=== PATIENT | female | born 1995 | race Caucasian/White ===

== ENCOUNTER 2017-05-25 10:37 | Emergency (ER) | payer MEDICAID ==
--- NOTE | 2017-05-25 10:59 | ER Document Report ---
ED General - General Chief Complaint: Dizziness Stated Complaint: DIZZINESS Notes: 22-year-old female with a history of repaired ASD and migraines presents with a constellation of symptoms for a month consisting of like feeling like her blood pressure is high, intermittent chest pressure, positional dizziness and near syncope as well as amenorrhea. She has a 5-month-old, is breast-feeding and has had 6 sexual activity but is not on control. Today she had an episode where she got up felt very dizzy "like jelly" and almost fainted. She did not pass out. She was brought in by EMS. Blood pressure is slightly elevated. She has a history of gestational hypertension with her last child. She denies current chest pain palpitations dizziness but has a mild headache. No visual disturbances or focal neurologic symptoms other than all 4 extremity tingling on occasion but not at the moment. She does not have Medicaid right now and does not have a primary care provider. TRAVEL OUTSIDE OF THE [place] IN LAST 30 DAYS: No - Related Data Allergies/Adverse Reactions: amoxicillin trihydrate [From Augmentin] Allergy (Mild, Verified 05/25/17 10:47) Hives Potassium Clavulanate * [From Augmentin] Allergy (Mild, Verified 05/25/17 10:47) Hives sulfamethoxazole [From Bactrim DS] Allergy (Mild, Verified 05/25/17 10:47) Hives tramadol [Tramadol] Allergy (Mild, Verified 05/25/17 10:47) Hives trimethoprim [From Bactrim DS] Allergy (Mild, Verified 05/25/17 10:47) Hives Past Medical History - Social History Smoking Status: Current Some Day Smoker Family History: None Patient has suicidal ideation: No Patient has homicidal ideation: No Neurological Medical History: Reports: Hx Migraine Renal/ Medical History: Denies: Hx Peritoneal Dialysis Past Surgical History: Reports: Hx Cardiac Surgery - ASD Repair - Immunizations Immunizations up to date: Yes Hx Diphtheria, Pertussis, Tetanus Vaccination: Yes Review of Systems - Review of Systems Notes: REVIEW OF SYSTEMS GEN: Weakness occasional dizziness ENT: Denies sore throat, nasal discharge, ear pain EYES: Denies blurry vision, eye pain, discharge CV: D positional chest pressure, shortness of breath. A RESP: Denies cough, shortness of breath, wheezing GI: Denies abdominal pain, nausea, vomiting, diarrhea MSK: Denies joint pain/swelling, edema, SKIN: Denies rash, skin lesions LYMPH: Denies swollen glands/lymph nodes NEURO: D headache, denies, focal weakness or numbness, dizziness PSYCH: Denies depression, suicidal or homicidal ideation PHYSICAL EXAMINATION General: No acute distress, well-nourished Head: Atraumatic, normocephalic ENT: Mouth normal, oropharynx moist, no exudates or tonsillar enlargement Eyes: Conjunctiva normal, pupils equal, lids normal able to visualize optic disks, no papilledema. Neck: No JVD, supple, no guarding CVS: Normal rate, regular rhythm, no murmurs Resp: No resp distress, equal and normal breath sounds bilaterally GI: Nondistended, soft, no tenderness to palpation, no rebound or guarding Ext: No deformities, no edema, normal range of motion in upper and lower ext Back: No CVA or midline TTP Skin: No rash, warm Lymphatic: No lymphadeopathy noted Neuro: Awake, alert. Face symmetric. No pronator drift intact software support specialist and normal sensation in all 4 extremities. Normal gait. GCS 15. Physical Exam - Vital signs Vitals: Temp Pulse Resp BP Pulse Ox 98.5 F 58 L 16 124/92 H 99 05/25/17 10:42 05/25/17 10:42 05/25/17 10:42 05/25/17 10:42 05/25/17 10:42 Course - Re-evaluation Re-evalutation: 05/25/17 10:58 22-year-old female presents with a constellation of headache weakness and near syncope. Her physical exam is normal at this time, including neuro. I do not think she has elevated intracranial pressure. She may have symptomatic hypertension and may be so we will get basic labs, and EKG, UA and urine . I did stress to her that we can only rule out emergencies today, and that she will be likely discharged if everything is normal and we will need to establish primary care. Also explained to her that treating mild hypertension in the ED can be detrimental, and that she may be discharged with mildly elevated BP, and we will attempt to help her with follow-up. 05/25/17 12:13 On discharge the patient's mother arrived in the room. The mother was quite dissatisfied with the patient's disposition and wanted her admitted because "something is wrong" and that she wants the patient admitted for observation. She states that she is a emergency medical technician and she took the patient's blood pressure at home and it was 240. I explained that her blood pressures here have been stable her workup negative, and that she is low risk for adverse events based on her ED workup. I offered outpatient follow-up even offered to expedite via social work but mother would not agree. I then stated I would speak with the hospitalist for consideration for admission. She is now telling me that should patient has leg pain which she did not tell me earlier, without swelling. Her physical exam of the legs are normal and I do not think she has a DVT. I spoke with Dr. Nguyen by phone who reviewed the patient's ED workup in my history as well as the patient diagnostic data all of which is normal. She agreed the patient does not meet admission criteria, cannot be admitted, and can follow-up as an outpatient. 05/25/17 12:15 - Vital Signs Vital signs: Temp Pulse Resp BP Pulse Ox 98.5 F 58 L 16 124/92 H 99 05/25/17 10:42 05/25/17 10:42 05/25/17 10:42 05/25/17 10:42 05/25/17 10:42 - Laboratory Result Diagrams: 05/25/17 11:00 05/25/17 11:00 Laboratory results interpreted by me: 05/25/17 11:00 RBC 5.37 H - EKG Interpretation by Me EKG shows normal: Sinus rhythm Rate: Normal Rhythm: NSR - Sinus arrhythmia Discharge - Discharge Clinical Impression: Pre-syncope Condition: Good Disposition: HOME, SELF-CARE Additional Instructions: He was seen for dizziness and chest pain. Your EKG is normal as were all of your laboratory testing. Initially her blood pressure was elevated, however it lowered on its own. You may in fact have high blood pressure and this needs to be checked as an outpatient. Your urine testing including were normal. You are not . Please keep well hydrated, and follow-up with her primary care doctor soon as you can. Forms: Elevated Blood Pressure Referrals: [facility] [Provider Group] - Follow up as needed
[2017-05-25 11:18] LABS: APPEARANCE,URINE CLEAR; BILIRUBIN,URINE NEGATIVE (NEGATIVE); GLUCOSE, URINE NEGATIVE (NEGATIVE); KETONES,URINE NEGATIVE (NEGATIVE); LEUKOCYTE ESTERASE,URINE NEGATIVE (NEGATIVE); NITRITE,URINE NEGATIVE (NEGATIVE); PROTEIN,URINE NEGATIVE (NEGATIVE); URINE SPECIFIC GRAVITY 1.009; UROBILINOGEN,URINE NEGATIVE mg/dL (<2.0)
[2017-05-25 11:21] LABS: ABSOLUTE EOSINOPHILS # (AUTO) 0.4 10^3/uL (0.0-0.6); ABSOLUTE LYMPHOCYTES (AUTO) 1.7 10^3/uL (0.5-4.7); ABSOLUTE MONOCYTES (AUTO) 0.6 10^3/uL (0.1-1.4); ABSOLUTE NEUT (AUTO) 3.3 10^3/uL (1.7-8.2); BASOPHILS % (AUTO) 0.8 % (0-2); EOSINOPHILS % (AUTO) 5.9 % (0-6); HEMATOCRIT 46.3 % (36.0-47.0); HEMOGLOBIN 15.2 g/dL (12.0-15.5); HGB HCT DIFFERENCE -0.7; LYMPHOCYTES % (AUTO) 28.1 % (13-45); MEAN CORPUSCULAR HEMOGLOBIN 28.3 pg (27.0-33.4); MEAN CORPUSCULAR HGB CONC 32.8 g/dL (32.0-36.0); MEAN CORPUSCULAR VOLUME 86 fl (80-97); MONOCYTES % (AUTO) 10.4 % (3-13); RED BLOOD COUNT 5.37 10^6/uL (3.72-5.28); RED CELL DISTRIBUTION WIDTH 13.4 % (11.5-14.0); SEGMENTED NEUTROPHILS % (AUTO) 54.8 % (42-78)
[2017-05-25 11:38] LABS: ANION GAP 11 (5-19); BLOOD UREA NITROGEN 15 mg/dL (7-20); CARBON DIOXIDE 29 mmol/L (22-30); CHLORIDE 103 mmol/L (98-107); CREATININE RESULT 0.59 mg/dL (0.52-1.25); GLUCOSE 96 mg/dL (75-110); POTASSIUM 4.4 mmol/L (3.6-5.0); SODIUM 143.3 mmol/L (137-145)
[2017-05-25 12:51] VITALS: BP 125/77
--- NOTE | 2017-05-25 16:38 | EKG REPORT ---
SEVERITY:- OTHERWISE NORMAL ECG - SINUS ARRHYTHMIA, RATE 46-78 : Confirmed by: Kevin Lenz MD 25-May-2017 16:36:56
== END 2017-05-25 12:35 | disposition home or self-care (01) ==
LOC: ER 10:37
DX: R55 Syncope and collapse (principal); R07.89 Other chest pain; R53.1 Weakness; R51 Headache; N91.2 Amenorrhea, unspecified; R20.2 Paresthesia of skin; R06.02 Shortness of breath; M79.606 Pain in leg, unspecified; F17.200 Nicotine dependence, unspecified, uncomplicated; Z88.1 Allergy status to other antibiotic agents; Z88.0 Allergy status to penicillin; Z88.5 Allergy status to narcotic agent; Z87.59 Personal history of other complications of pregnancy, childbirth and the puerperium
CPT/HCPCS: 36415; 80048; 81001; 81025; 84484; 85025; 93005; 93010; 99284

== ENCOUNTER 2017-11-29 11:54 | Emergency (ER) | payer MEDICAID ==
[2017-11-29 12:07] VITALS: BP 127/69
--- NOTE | 2017-11-29 12:40 | ER Document Report ---
ED Medical Screen (RME) - General Chief Complaint: Vaginal Bleeding Stated Complaint: ABDOMINAL PAIN,VAGINAL BLEEDING Time Seen by Provider: 11/29/17 12:30 Notes: 22F here with complaints of vaginal bleeding and lower abdominal cramping. She states that she recently passed a very large blood clot. She denies any hematuria but has had some dysuria and lower abdominal pressure. Her last menstrual period was early October. EXAM Mild suprapubic tenderness to palpation TRAVEL OUTSIDE OF THE [place] IN LAST 30 DAYS: No - Related Data Allergies/Adverse Reactions: amoxicillin trihydrate [From Augmentin] Allergy (Mild, Verified 11/29/17 11:55) Hives Potassium Clavulanate * [From Augmentin] Allergy (Mild, Verified 11/29/17 11:55) Hives sulfamethoxazole [From Bactrim DS] Allergy (Mild, Verified 11/29/17 11:55) Hives tramadol [Tramadol] Allergy (Mild, Verified 11/29/17 11:55) Hives trimethoprim [From Bactrim DS] Allergy (Mild, Verified 11/29/17 11:55) Hives Past Medical History - Social History Chew tobacco use (# tins/day): No Frequency of alcohol use: None Drug Abuse: None Neurological Medical History: Reports: Hx Migraine Renal/ Medical History: Denies: Hx Peritoneal Dialysis Past Surgical History: Reports: Hx Cardiac Surgery - ASD Repair - Immunizations Immunizations up to date: Yes Hx Diphtheria, Pertussis, Tetanus Vaccination: Yes Physical Exam - Vital signs Vitals: Temp Pulse Resp BP Pulse Ox 98.4 F 66 18 127/69 H 96 11/29/17 12:05 11/29/17 12:05 11/29/17 12:05 11/29/17 12:05 11/29/17 12:05 Course - Vital Signs Vital signs: Temp Pulse Resp BP Pulse Ox 98.4 F 66 18 127/69 H 96 11/29/17 12:05 11/29/17 12:05 11/29/17 12:05 11/29/17 12:05 11/29/17 12:05
[2017-11-29 13:08] LABS: ABSOLUTE BASOPHILS # (AUTO) 0.1 10^3/uL (0.0-0.2); ABSOLUTE EOSINOPHILS # (AUTO) 0.3 10^3/uL (0.0-0.6); ABSOLUTE LYMPHOCYTES (AUTO) 1.6 10^3/uL (0.5-4.7); ABSOLUTE MONOCYTES (AUTO) 0.5 10^3/uL (0.1-1.4); ABSOLUTE NEUT (AUTO) 8.4 10^3/uL (1.7-8.2); BASOPHILS % (AUTO) 0.7 % (0-2); EOSINOPHILS % (AUTO) 2.6 % (0-6); HEMATOCRIT 40.5 % (36.0-47.0); HEMOGLOBIN 13.3 g/dL (12.0-15.5); MEAN CORPUSCULAR HEMOGLOBIN 28.2 pg (27.0-33.4); MEAN CORPUSCULAR HGB CONC 32.9 g/dL (32.0-36.0); MEAN CORPUSCULAR VOLUME 86 fl (80-97); MONOCYTES % (AUTO) 4.8 % (3-13); PLATELET COUNT 251 10^3/uL (150-450); RED BLOOD COUNT 4.73 10^6/uL (3.72-5.28); RED CELL DISTRIBUTION WIDTH 13.6 % (11.5-14.0); SEGMENTED NEUTROPHILS % (AUTO) 76.9 % (42-78); TOTAL CELLS COUNTED % (AUTO) 100 %
[2017-11-29 13:12] LABS: APPEARANCE,URINE CLOUDY; BILIRUBIN,URINE NEGATIVE (NEGATIVE); COLOR,URINE YELLOW; GLUCOSE, URINE NEGATIVE (NEGATIVE); KETONES,URINE NEGATIVE (NEGATIVE); LEUKOCYTE ESTERASE,URINE SMALL (NEGATIVE); NITRITE,URINE NEGATIVE (NEGATIVE); PROTEIN,URINE NEGATIVE (NEGATIVE); URINE SPECIFIC GRAVITY 1.031
[2017-11-29 13:36] LABS: ANION GAP 11 (5-19); BLOOD UREA NITROGEN 8 mg/dL (7-20); CALCIUM 9.6 mg/dL (8.4-10.2); CARBON DIOXIDE 27 mmol/L (22-30); CHLORIDE 103 mmol/L (98-107); GLUCOSE 89 mg/dL (75-110); POTASSIUM 3.9 mmol/L (3.6-5.0); SODIUM 141.3 mmol/L (137-145)
--- NOTE | 2017-11-29 16:29 | ER Document Report ---
ED General - General Chief Complaint: Vaginal Bleeding Stated Complaint: ABDOMINAL PAIN,VAGINAL BLEEDING Time Seen by Provider: 11/29/17 12:30 Mode of Arrival: Ambulatory Information source: Patient TRAVEL OUTSIDE OF THE [place] IN LAST 30 DAYS: No - HPI Patient complains to provider of: vag bleeding Onset: Yesterday Onset/Duration: Gradual Quality of pain: No pain Severity: Moderate Associated symptoms: None Exacerbated by: Denies Similar symptoms previously: Yes Recently seen / treated by doctor: No Notes: Patient presents stating that she passed a large blood clot last night. She states she also took a test a few days ago and was positive. Patient states she does not get regular periods so she is not sure how far along she is. She states that she had somewhat of. The beginning of October which ended October 26. She was spotting on and off in the last night she did pass a clot. She denies any abdominal cramping. Is 3 para 11/18/2001. She states she had -induced hypertension with her oldest child. She denies gestational diabetes. She states that her youngest child was a month early secondary to induction due to patient having high blood pressure in the child having a "enlarged colon with meconium". Patient has seen [facility] with prior pregnancies. States she is also hypothyroid however she stopped her thyroid medication months ago because it makes her hair fall out. She states she sees [facility] specialty [facility] however they will not see her until she has a documented (from medical facility) as per the patient. - Related Data Allergies/Adverse Reactions: amoxicillin trihydrate [From Augmentin] Allergy (Mild, Verified 11/29/17 11:55) Hives Potassium Clavulanate * [From Augmentin] Allergy (Mild, Verified 11/29/17 11:55) Hives sulfamethoxazole [From Bactrim DS] Allergy (Mild, Verified 11/29/17 11:55) Hives tramadol [Tramadol] Allergy (Mild, Verified 11/29/17 11:55) Hives trimethoprim [From Bactrim DS] Allergy (Mild, Verified 11/29/17 11:55) Hives Past Medical History - General Information source: Patient - States she is also on thyroid medication but she stopped taking it - Social History Smoking Status: Never Smoker Chew tobacco use (# tins/day): No Frequency of alcohol use: None Drug Abuse: None Lives with: Family Family History: None Patient has suicidal ideation: No Patient has homicidal ideation: No - Past Medical History Cardiac Medical History: Reports: Other - ASD Pulmonary Medical History: Reports: None Neurological Medical History: Reports: Hx Migraine Renal/ Medical History: Denies: Hx Peritoneal Dialysis GI Medical History: Reports: None Musculoskeltal Medical History: Reports None Skin Medical History: Reports None Psychiatric Medical History: Reports: None Traumatic Medical History: Reports: None Infectious Medical History: Reports: None Past Surgical History: Reports: Hx Cardiac Surgery - ASD Repair, Other - ASD repair - Immunizations Immunizations up to date: Yes Hx Diphtheria, Pertussis, Tetanus Vaccination: Yes Review of Systems - Review of Systems Constitutional: No symptoms reported EENT: No symptoms reported Cardiovascular: No symptoms reported Respiratory: No symptoms reported Gastrointestinal: No symptoms reported Genitourinary: No symptoms reported Female Genitourinary: Vaginal discharge, Vaginal bleeding, Painful intercourse Musculoskeletal: No symptoms reported Skin: No symptoms reported Hematologic/Lymphatic: No symptoms reported Neurological/Psychological: No symptoms reported Physical Exam - Vital signs Vitals: Temp Pulse Resp BP Pulse Ox 98.4 F 66 18 127/69 H 96 11/29/17 12:05 11/29/17 12:05 11/29/17 12:05 11/29/17 12:05 11/29/17 12:05 Interpretation: Normal - Notes Notes: PHYSICAL EXAMINATION: GENERAL: Well-appearing, well-nourished and in no acute distress. HEAD: Atraumatic, normocephalic. EYES: Pupils equal round and reactive to light, extraocular movements intact, conjunctiva are normal. ENT: Nares patent, oropharynx clear without exudates. Moist mucous membranes. NECK: Normal range of motion, supple without lymphadenopathy LUNGS: Breath sounds clear to auscultation bilaterally and equal. No wheezes rales or rhonchi. HEART: Regular rate and rhythm without murmurs ABDOMEN: Soft, nontender, nondistended abdomen. No guarding, no rebound. No masses appreciated. Female : Scant yellowish discharge in vaginal vault. No bleeding present. Cervical loss intact. No CMT or adnexal tenderness Musculoskeletal: Normal range of motion, no pitting or edema. No cyanosis. NEUROLOGICAL: Cranial nerves grossly intact. Normal speech, normal gait. Normal sensory, motor exams PSYCH: Normal mood, normal affect. SKIN: Warm, Dry, normal turgor, no rashes or lesions noted. Course - Vital Signs Vital signs: Temp Pulse Resp BP Pulse Ox 98.4 F 66 18 127/69 H 96 11/29/17 12:05 11/29/17 12:05 11/29/17 12:05 11/29/17 12:05 11/29/17 12:05 - Laboratory Result Diagrams: 11/29/17 12:50 11/29/17 12:50 Laboratory results interpreted by me: 11/29/17 11/29/17 11/29/17 12:50 12:50 12:50 WBC 11.0 H Absolute Neutrophils 8.4 H Beta HCG, Quant 00899.00 H Urine Blood MODERATE H Urine Urobilinogen 4.0 H Ur Leukocyte Esterase SMALL H 11/29/17 19:20 She did have bacteria 3+ on her vaginal swab sent to lab. I did speak to Dr. Lenin Aragon regarding Flagyl in the first trimester. It is not indicated at this time to treat the patient and her first trimester with Flagyl. It is not conclusive the patient actually has BV as there are no clue cells noted as this is not done in the laboratory. Patient was instructed to follow-up with her OB/ [facility] C[facility]TER if she continued to have vaginal discharge and tested positive for BV she can get treatment as per her [facility]DER. He was given a copy of the ultrasound. She was told to follow-up with her primary medical doctor as well as her MFM and OB doctors. - Diagnostic Test Radiology results interpreted by me: 11/29/17 19:21 To sound showed a 7 week 4 day fetus with a subchorionic bleed and a heartbeat of 160 bpm Discharge - Discharge Clinical Impression: , Bacterial vaginal infection Disposition: HOME, SELF-CARE Instructions: Ob-Ex Assistant/Program Director Doctors Additional Instructions: Please call your OB in the am for follow up appointment. Discussed with your OB /TYPE CUTTER treatment for vaginal bacterial infection. It is not indicated to treat bacterial vaginal infection with Flagyl in the first trimester. Referrals: SAMAN PONCE MD [Primary Care Provider] - Follow up as needed
[2017-11-29 17:03] LABS: YEAST (WET MOUNT) NO YEAST SEEN
[2017-11-29 17:04] LABS: WBCS (WET MOUNT) FEW WBCS SEEN
[2017-11-29 17:06] LABS: BACTERIA (WET MOUNT) 3+ BACTERIA SEEN
--- NOTE | 2017-11-29 17:45 | RADIOLOGY REPORT (SQ) ---
EXAM DESCRIPTION: U/S OB TRANSVAGINAL W/O DOP COMPLETED DATE/TIME: 11/29/2017 4:59 pm REASON FOR STUDY: vag bleeding and clots; eval miscarriage ectopic COMPARISON: None. TECHNIQUE: Transvaginal static and realtime grayscale images acquired of the pelvis. Additional kadeem cted spectral and color Doppler images recorded. All images stored on PACs. bHC,[id number]. LIMITATIONS: None. FINDINGS: FETUS: Living intrauterine . EGA: 7 week 4 day. MARGRET: 07/14/2018. FHR: 160 beats per minute. SUBCHORIONIC BLEED: Yes. SIZE OF BLEED: 1.9 x 2.3 cm. UTERUS: No masses. No anomalies. CERVICAL LENGTH: 4.1 cm. Closed. RIGHT ADNEXA: Normal ovary with normal vascular flow. No adnexal free fluid. No adnexal masses. LEFT ADNEXA: Normal ovary with normal vascular flow. No adnexal free fluid. No adnexal masses. FREE FLUID: None. OTHER: No other significant finding. IMPRESSION: LIVING INTRAUTERINE . EGA 7 WEEK 4 DAY. SUBCHORIONIC BLEED IS PRESENT. Trimester of : First - 0 to 13 weeks. TECHNICAL DOCUMENTATION: JOB ID: [id number] 1953 [place] [employer]- All Rights Reserved
[2017-11-29 18:21] LABS: CHLAM PCR NOT DETECTED (NOT DETECT); GON PCR NOT DETECTED (NOT DETECT)
[2017-12-02 13:35] LABS: T.VAGINALIS (WET MOUNT) COULD NOT PERFORM
== END 2017-11-29 18:25 | disposition home or self-care (01) ==
LOC: ER 11:54
DX: O23.591 Infection of other part of genital tract in pregnancy, first trimester (principal); N76.0 Acute vaginitis; B96.89 Other specified bacterial agents as the cause of diseases classified elsewhere; O46.91 Antepartum hemorrhage, unspecified, first trimester; R10.9 Unspecified abdominal pain; Z3A.01 Less than 8 weeks gestation of pregnancy
CPT/HCPCS: 36415; 76817; 80048; 81001; 84443; 84702; 85025; 86850; 86900; 86901; 87086; 87210; 87491; 87591; 99284

== ENCOUNTER 2017-11-30 00:14 | Emergency (ER) | payer MEDICAID ==
[2017-11-30] MEDS ORDERED: MORPHINE SULFATE 10 MG/ML INJ IV ONE (02:24)
[2017-11-30] MEDS ORDERED: NORMAL SALINE 1000 ML 1,000 ML IV ONE (02:24)
--- NOTE | 2017-11-30 02:55 | ER Document Report ---
ED General - General Chief Complaint: Vag Bleeding, +preg <12wks Stated Complaint: VAGINAL BLEEDING CRAMPING Time Seen by Provider: 11/30/17 02:06 Mode of Arrival: Medic Information source: Patient Notes: 22-year-old female presents with complaints of miscarriage. Patient notes at home she passed the fetus and some clots. Patient continued to have vaginal bleeding here. She had just been seen a few hours prior and diagnosed with bacterial vaginosis and threatened miscarriage of ultrasound TRAVEL OUTSIDE OF THE [place] IN LAST 30 DAYS: No - HPI Onset: Just prior to arrival Onset/Duration: Sudden Quality of pain: Sharp Severity: Mild Pain Level: 1 Associated symptoms: Other Exacerbated by: Denies Relieved by: Denies Similar symptoms previously: Yes Recently seen / treated by doctor: Yes - Related Data Allergies/Adverse Reactions: amoxicillin trihydrate [From Augmentin] Allergy (Mild, Verified 11/30/17 00:15) Hives Potassium Clavulanate * [From Augmentin] Allergy (Mild, Verified 11/30/17 00:15) Hives sulfamethoxazole [From Bactrim DS] Allergy (Mild, Verified 11/30/17 00:15) Hives tramadol [Tramadol] Allergy (Mild, Verified 11/30/17 00:15) Hives trimethoprim [From Bactrim DS] Allergy (Mild, Verified 11/30/17 00:15) Hives Past Medical History - Social History Smoking Status: Never Smoker Cigarette use (# per day): No Chew tobacco use (# tins/day): No Smoking Education Provided: No Family History: None, Reviewed & Not Pertinent Neurological Medical History: Reports: Hx Migraine Renal/ Medical History: Denies: Hx Peritoneal Dialysis Past Surgical History: Reports: Hx Cardiac Surgery - ASD Repair, Other - ASD repair - Immunizations Immunizations up to date: Yes Hx Diphtheria, Pertussis, Tetanus Vaccination: Yes Review of Systems - Review of Systems Notes: REVIEW OF SYSTEMS: CONSTITUTIONAL : Denies fever, chills, or sweats. Denies recent illness. EENT: Denies eye, ear, throat, or mouth pain or symptoms. Denies nasal or sinus congestion or discharge. Denies throat, tongue, or mouth swelling or difficulty swallowing. CARDIOVASCULAR: Denies chest pain. Denies palpitations or racing or irregular heart beat. Denies ankle edema. RESPIRATORY: Denies cough, cold, or chest congestion. Denies shortness of breath, difficulty breathing, or wheezing. GASTROINTESTINAL: Denies abdominal pain or distention. Denies nausea, vomiting , or diarrhea. Denies blood in vomitus, stools, or per rectum. Denies black, tarry stools. Denies constipation. GENITOURINARY: Denies difficulty urinating, painful urination, burning, frequency, blood in urine, or discharge. FEMALE GENITOURINARY: Admits to vaginal bleeding MUSCULOSKELETAL: Denies back or neck pain or stiffness. Denies joint pain or swelling. SKIN: Denies rash, lesions or sores. HEMATOLOGIC : Denies easy bruising or bleeding. LYMPHATIC: Denies swollen, enlarged glands. NEUROLOGICAL: Denies confusion or altered mental status. Denies passing out or loss of consciousness. Denies dizziness or lightheadedness. Denies headache. Denies weakness or paralysis or loss of use of either side. Denies problems with gait or speech. Denies sensory loss, numbness, or tingling. Denies seizures. PSYCHIATRIC: Denies anxiety or stress. Denies depression, suicidal ideation, or homicidal ideation. ALL OTHER SYSTEMS REVIEWED AND NEGATIVE. PHYSICAL EXAMINATION: GENERAL: Well-appearing, well-nourished and in no acute distress. HEAD: Atraumatic, normocephalic. EYES: Pupils equal round and reactive to light, extraocular movements intact, conjunctiva are normal. ENT: Nares patent, oropharynx clear without exudates. Moist mucous membranes. NECK: Normal range of motion, supple without lymphadenopathy LUNGS: Breath sounds clear to auscultation bilaterally and equal. No wheezes rales or rhonchi. HEART: Regular rate and rhythm without murmurs ABDOMEN: Soft, nontender, nondistended abdomen. No guarding, no rebound. No masses appreciated. Female : deferred Musculoskeletal: Normal range of motion, no pitting or edema. No cyanosis. NEUROLOGICAL: Cranial nerves grossly intact. Normal speech, normal gait. Normal sensory, motor exams PSYCH: Normal mood, normal affect. SKIN: Warm, Dry, normal turgor, no rashes or lesions noted. Dictation was performed using [employer] voice recognition software Physical Exam - Vital signs Vitals: Temp Pulse Resp BP Pulse Ox 99.3 F 89 18 125/67 98 11/30/17 00:15 11/30/17 00:15 11/30/17 00:15 11/30/17 00:15 11/30/17 00:15 Course - Re-evaluation Re-evalutation: 11/30/17 03:30 Patient's presentation is quite benign at this time, she did lose about 500 cc of blood in the bathroom here however her CBC after this is noted to be a hemoglobin of 12.2. Patient overall looks well will be given IV fluids. Patient definitely had a miscarriage, she presents with a picture of the fetus. The bleeding is expected from the miscarriage. Patient at this time states she feels much better does not wish to have any more pain control except for Tylenol 11/30/17 03:43 Patient's bleeding has slowed down significantly, IV fluids was done, I discussed very strict return precautions, patient otherwise looks well will be discharged with very close return precautions We also discussed incomplete miscarriage fever and abdominal pain return instructions After performing a Medical Screening Examination, I estimate there is LOW risk for ACUTE APPENDICITIS, BOWEL OBSTRUCTION, ACUTE CHOLECYSTITIS, PERFORATED DIVERTICULITIS, INCARCERATED HERNIA, PANCREATITIS, PELVIC INFLAMMATORY DISEASE, PERFORATED ULCER, ECTOPIC , or TUBO-OVARIAN ABSCESS, thus I consider the discharge disposition reasonable. Also, there is no evidence or peritonitis , sepsis, or toxicity. I have reevaluated this patient multiple times and no significant life threatening changes are noted. The patient and I have discussed the diagnosis and risks, and we agree with discharging home with close follow-up with the understanding that symptoms and presentations can change. We also discussed returning to the Emergency Department immediately if new or worsening symptoms occur. We have discussed the symptoms which are most concerning (e.g., bloody stool, fever, changing or worsening pain, vomiting) that necessitate immediate return. - Vital Signs Vital signs: Temp Pulse Resp BP Pulse Ox 98.3 F 68 18 136/68 H 97 11/30/17 02:32 11/30/17 02:32 11/30/17 00:15 11/30/17 02:32 11/30/17 02:32 - Laboratory Result Diagrams: 11/30/17 02:45 11/30/17 02:45 Laboratory results interpreted by me: 11/30/17 02:45 WBC 18.0 H Seg Neutrophils % 80.1 H Absolute Neutrophils 14.5 H Discharge - Discharge Clinical Impression: Bacterial vaginal infection, Miscarriage Condition: Stable Disposition: HOME, SELF-CARE Instructions: Miscarriage ([facility]) Additional Instructions: Follow up with your physician tomorrow for further care or return to the ED IMMEDIATELY if symptoms worsen or new concerns occur. If you cannot afford to follow up with your primary care physician a list of low cost clinics have been provided at the end of your discharge papers as well. Prescriptions: Fluconazole [Diflucan] 150 mg PO ONCE PRN #2 tablet PRN Reason: Metronidazole [Flagyl 500 mg Tablet] 500 mg PO BID #14 tablet
[2017-11-30 03:13] LABS: ABSOLUTE BASOPHILS # (AUTO) 0.1 10^3/uL (0.0-0.2); ABSOLUTE EOSINOPHILS # (AUTO) 0.2 10^3/uL (0.0-0.6); ABSOLUTE LYMPHOCYTES (AUTO) 2.4 10^3/uL (0.5-4.7); ABSOLUTE MONOCYTES (AUTO) 0.9 10^3/uL (0.1-1.4); ABSOLUTE NEUT (AUTO) 14.5 10^3/uL (1.7-8.2); BASOPHILS % (AUTO) 0.4 % (0-2); HEMATOCRIT 36.4 % (36.0-47.0); LYMPHOCYTES % (AUTO) 13.4 % (13-45); MEAN CORPUSCULAR HEMOGLOBIN 28.1 pg (27.0-33.4); MEAN CORPUSCULAR HGB CONC 32.9 g/dL (32.0-36.0); MEAN CORPUSCULAR VOLUME 85 fl (80-97); MONOCYTES % (AUTO) 5.1 % (3-13); PLATELET COUNT 237 10^3/uL (150-450); RED BLOOD COUNT 4.26 10^6/uL (3.72-5.28); RED CELL DISTRIBUTION WIDTH 13.3 % (11.5-14.0); SEGMENTED NEUTROPHILS % (AUTO) 80.1 % (42-78); TOTAL CELLS COUNTED % (AUTO) 100 %
[2017-11-30] MEDS ORDERED: ACETAMINOPHEN 325 MG TABLET PO ONE (03:14)
[2017-11-30 03:28] LABS: ALANINE AMINOTRANSFERASE 28 U/L (9-52); ALBUMIN 4.3 g/dL (3.5-5.0); ALKALINE PHOSPHATASE 83 U/L (38-126); ANION GAP 13 (5-19); ASPARTATE AMINO TRANSFERASE 14 U/L (14-36); BILIRUBIN,DIRECT 0.2 mg/dL (0.0-0.4); BILIRUBIN,TOTAL 0.5 mg/dL (0.2-1.3); BLOOD UREA NITROGEN 8 mg/dL (7-20); CALCIUM 9.6 mg/dL (8.4-10.2); CARBON DIOXIDE 25 mmol/L (22-30); CHLORIDE 103 mmol/L (98-107); GLUCOSE 80 mg/dL (75-110); POTASSIUM 3.7 mmol/L (3.6-5.0); SODIUM 141.4 mmol/L (137-145); TOTAL PROTEIN 6.8 g/dL (6.3-8.2)
[2017-11-30] MEDS ORDERED: ONDANSETRON ODT 4 MG TAB (6 TAB/ER DISP) PO PRN (03:45)
[2017-11-30] MEDS ORDERED: ONDANSETRON HCL INJ/PF 4 MG/2 ML SDV IV ONE (03:45)
[2017-11-30 05:15] LABS: HEMATOCRIT 30.2 % (36.0-47.0); MEAN CORPUSCULAR HEMOGLOBIN 28.7 pg (27.0-33.4); MEAN CORPUSCULAR HGB CONC 33.2 g/dL (32.0-36.0); MEAN CORPUSCULAR VOLUME 86 fl (80-97); PLATELET COUNT 197 10^3/uL (150-450); RED CELL DISTRIBUTION WIDTH 13.2 % (11.5-14.0); WHITE BLOOD COUNT 14.5 10^3/uL (4.0-10.5)
[2017-11-30 06:26] VITALS: BP 123/61
== END 2017-11-30 06:26 | disposition home or self-care (01) ==
LOC: ER 00:14
DX: O20.9 Hemorrhage in early pregnancy, unspecified (principal); O03.9 Complete or unspecified spontaneous abortion without complication; N76.0 Acute vaginitis; B96.89 Other specified bacterial agents as the cause of diseases classified elsewhere; Z88.3 Allergy status to other anti-infective agents
CPT/HCPCS: 99284; 96360; 86900; 86901; 36415; 86850; 85025; 85027; 80053; J2790; J3490; J7030

== ENCOUNTER 2018-04-13 14:43 | Emergency (ER) | payer MEDICAID ==
[2018-04-13] MEDS ORDERED: ACETAMINOPHEN 325 MG TABLET PO ONE (15:36)
--- NOTE | 2018-04-13 15:38 | ER Document Report ---
ED Medical Screen (RME) - General Chief Complaint: Abdominal Pain Stated Complaint: ABDOMINAL CRAMPING Time Seen by Provider: 04/13/18 15:27 Notes: RAPID MEDICAL EVALUATION DISCLOSURE I have seen this patient as part of a Rapid Medical Evaluation and, if applicable, placed any initially appropriate orders. The patient will be seen and fully evaluated, including a full history and physical exam, by a provider ( in Main ED or Fast Track) when a room becomes available. 23-year-old female here with complaints of lower abdominal cramping and vaginal spotting over the past few days. She thinks that she may be having another miscarriage. Her last miscarriage was November of this year. Exam No appreciable abdominal TTP TRAVEL OUTSIDE OF THE [place] IN LAST 30 DAYS: No - Related Data Allergies/Adverse Reactions: sulfamethoxazole [From Bactrim DS] Allergy (Mild, Verified 04/13/18 14:45) Hives tramadol [Tramadol] Allergy (Mild, Verified 04/13/18 14:45) Hives trimethoprim [From Bactrim DS] Allergy (Mild, Verified 04/13/18 14:45) Hives Past Medical History - Social History Chew tobacco use (# tins/day): No Frequency of alcohol use: None Drug Abuse: None Neurological Medical History: Reports: Hx Migraine Renal/ Medical History: Denies: Hx Peritoneal Dialysis Past Surgical History: Reports: Hx Cardiac Surgery - ASD Repair, Hx Oral Surgery - jaw, Other - ASD repair - Immunizations Immunizations up to date: Yes Hx Diphtheria, Pertussis, Tetanus Vaccination: Yes Physical Exam - Vital signs Vitals: Temp Pulse Resp BP Pulse Ox 99.1 F 87 16 128/69 H 99 04/13/18 14:51 04/13/18 14:51 04/13/18 14:51 04/13/18 14:51 04/13/18 14:51 Course - Vital Signs Vital signs: Temp Pulse Resp BP Pulse Ox 99.1 F 87 16 128/69 H 99 04/13/18 14:51 04/13/18 14:51 04/13/18 14:51 04/13/18 14:51 04/13/18 14:51
--- NOTE | 2018-04-13 16:44 | ER Document Report ---
ED GI/ - General Chief Complaint: Abdominal Pain Stated Complaint: ABDOMINAL CRAMPING Time Seen by Provider: 04/13/18 15:27 Mode of Arrival: Ambulatory Information source: Patient TRAVEL OUTSIDE OF THE [place] IN LAST 30 DAYS: No - HPI Patient complains to provider of: , Vaginal bleeding Notes: 04/13/18 16:41 Patient is here with complaints of vaginal bleeding and intermittent pelvic cramping. Patient is currently . She states that she took a test last week which was positive. She believes that her last normal period was sometime in December, but states that she has had some intermittent abnormal bleeding since. She does report having a miscarriage in November. She does have O- blood type and was given RhoGam on her last miscarriage. This is her fourth , she has 2 living children and has had 1 prior miscarriage. States that the bleeding started yesterday as well as the cramping. She states that the bleeding is anywhere from spotting to bleeding heavy enough that she is needed to use a pad. She does complain of some mild lower pelvic cramping. She denies fever. She has had nausea vomiting since finding out she was . No diarrhea. She denies any chest pain or shortness of breath. No rash. She does complain of some mild burning after she urinates. She denies any rash. She complains of some mild thin vaginal discharge, but denies any odor to this. No other complaints at this time. - Related Data Allergies/Adverse Reactions: sulfamethoxazole [From Bactrim DS] Allergy (Mild, Verified 04/13/18 14:45) Hives tramadol [Tramadol] Allergy (Mild, Verified 04/13/18 14:45) Hives trimethoprim [From Bactrim DS] Allergy (Mild, Verified 04/13/18 14:45) Hives Past Medical History - Social History Smoking Status: Current Every Day Smoker Chew tobacco use (# tins/day): No Frequency of alcohol use: None Drug Abuse: None Family History: None, Reviewed & Not Pertinent Patient has suicidal ideation: No Patient has homicidal ideation: No Neurological Medical History: Reports: Hx Migraine Renal/ Medical History: Denies: Hx Peritoneal Dialysis Past Surgical History: Reports: Hx Cardiac Surgery - ASD Repair, Hx Oral Surgery - jaw, Other - ASD repair - Immunizations Immunizations up to date: Yes Hx Diphtheria, Pertussis, Tetanus Vaccination: Yes Review of Systems - Review of Systems -: Yes All other systems reviewed and negative Physical Exam - Vital signs Vitals: Temp Pulse Resp BP Pulse Ox 99.1 F 87 16 128/69 H 99 04/13/18 14:51 04/13/18 14:51 04/13/18 14:51 04/13/18 14:51 04/13/18 14:51 - Notes Notes: GENERAL: alert, cooperative, nontoxic, no distress. HEAD: normocephalic, atraumatic EYES: conjunctiva pink without discharge, no external redness or swelling. EARS: no external swelling, no external redness NOSE: atraumatic, no external swelling MOUTH/THROAT: mucous membranes moist and pink, posterior pharynx without erythema, swelling, exudate. No trismus or drooling. NECK: soft, supple, full range of motion, no meningismus. CHEST: no distress, lungs clear and equal throughout. No wheezing, rales, rhonchi. CARDIAC: regular rate and rhythm, no murmur, normal capillary refill, normal pulses. No peripheral edema noted. ABDOMEN: Soft, mild tenderness to palpation in the suprapubic/pelvic area. No rebound tenderness or guarding. No right lower quadrant tenderness. No pain at McBurney's point. No mass. Obese abdomen. BACK: full range of motion, no CVA tenderness. EXTREMITIES: full range of motion of all extremities. No redness, no swelling. NEURO: alert and oriented x 3, no focal deficits, full range of motion of all extremities. PYSCH: appropriate mood, affect. Patient is cooperative. SKIN: pink, warm, dry, no rash. : Exam performed with female director advanced at the bedside. No external lesions. Vaginal mucosa is pink and moist. Cervix is closed. No active bleeding or old blood within the vaginal vault. Small amount of white vaginal discharge present. No cervical motion tenderness. No adnexal tenderness or masses on bimanual Course - Re-evaluation Re-evalutation: 04/13/18 18:59 Patient is nontoxic appearing with stable vitals. Patient is here with complaints of vaginal bleeding and . She is also having some lower abdominal cramping. This is her fourth . She has 2 living children and a miscarriage in November. States that she started having some vaginal bleeding and cramping yesterday. She has had anything from spotting to significant bleeding. She denies any significant bleeding currently. She has minimal lower pelvic tenderness on exam. Pelvic exam shows a closed cervix with no active bleeding and no old blood within the vaginal vault. Lab work is all unremarkable. Her hCG is 32,000. No signs of UTI on UA. Wet prep is negative. GC chlamydia cultures are currently pending. Ultrasound shows a live intrauterine at 6 weeks. Patient has an O- blood type, due to the fact that she was having vaginal bleeding she does meet the requirement for RhoGam. She was given RhoGam after consent. This point the patient can be discharged home with instructions to follow-up with her BILINGUAL MEDICAL ASSISTANT. Follow-up sooner for worsening pain, fever, numbness, tingling, weakness, any further concerns. The patient is noted to have elevated blood pressure during today's emergency department visit. The patient was informed of this finding. The patient was instructed that this may be related to pre-hypertension and requires further evaluation with a primary care provider. The patient has no hypertensive symptoms at this time. The patient's emergency department workup and current diagnosis were explained to the patient and or family. Follow-up instructions were provided. Medications if prescribed were discussed. Instructions for when to return to the emergency department including specific worrisome symptoms were discussed with the patient and/or family. - Vital Signs Vital signs: Temp Pulse Resp BP Pulse Ox 99.1 F 87 16 128/69 H 99 04/13/18 14:51 04/13/18 14:51 04/13/18 14:51 04/13/18 14:51 04/13/18 14:51 - Laboratory Result Diagrams: 04/13/18 16:45 04/13/18 16:45 Laboratory results interpreted by me: 04/13/18 04/13/18 04/13/18 16:45 16:45 16:45 WBC 12.4 H RDW 16.1 H Absolute Neutrophils 9.4 H Beta HCG, Quant 14645.00 H Urine Urobilinogen 4.0 H Ur Leukocyte Esterase SMALL H - Diagnostic Test Radiology reviewed: Image reviewed, Reports reviewed - Pelvic ultrasound shows live intrauterine . Discharge - Discharge Clinical Impression: Threatened Condition: Stable Disposition: HOME, SELF-CARE Instructions: ([facility]), Threatened Miscarriage ([facility]) Additional Instructions: Follow-up with your BILINGUAL MEDICAL ASSISTANT at the next available appointment. Everything on today's evaluation looks unremarkable. Due to the fact that you are early in and had vaginal bleeding, it is possible that you could go on to have a miscarriage. Follow-up sooner for severe pain, high fever, persistent vomiting, severe bleeding, or for any further concerns. Your blood pressure was elevated during today's visit. Have this rechecked with your doctor. Forms: Elevated Blood Pressure Referrals: TASNEEM GRAY MD [Primary Care Provider] - Follow up as needed
[2018-04-13 17:01] LABS: ABSOLUTE BASOPHILS # (AUTO) 0.1 10^3/uL (0.0-0.2); ABSOLUTE EOSINOPHILS # (AUTO) 0.3 10^3/uL (0.0-0.6); ABSOLUTE LYMPHOCYTES (AUTO) 2.1 10^3/uL (0.5-4.7); ABSOLUTE MONOCYTES (AUTO) 0.5 10^3/uL (0.1-1.4); ABSOLUTE NEUT (AUTO) 9.4 10^3/uL (1.7-8.2); BASOPHILS % (AUTO) 0.6 % (0-2); EOSINOPHILS % (AUTO) 2.3 % (0-6); HEMATOCRIT 38.3 % (36.0-47.0); HEMOGLOBIN 12.5 g/dL (12.0-15.5); LYMPHOCYTES % (AUTO) 17.1 % (13-45); MEAN CORPUSCULAR HEMOGLOBIN 27.2 pg (27.0-33.4); MEAN CORPUSCULAR HGB CONC 32.7 g/dL (32.0-36.0); MEAN CORPUSCULAR VOLUME 83 fl (80-97); MONOCYTES % (AUTO) 4.2 % (3-13); PLATELET COUNT 266 10^3/uL (150-450); RED BLOOD COUNT 4.61 10^6/uL (3.72-5.28); RED CELL DISTRIBUTION WIDTH 16.1 % (11.5-14.0); SEGMENTED NEUTROPHILS % (AUTO) 75.8 % (42-78); TOTAL CELLS COUNTED % (AUTO) 100 %; WHITE BLOOD COUNT 12.4 10^3/uL (4.0-10.5)
[2018-04-13 17:07] LABS: APPEARANCE,URINE SLIGHTLY-CLOUDY; BILIRUBIN,URINE NEGATIVE (NEGATIVE); COLOR,URINE YELLOW; GLUCOSE, URINE NEGATIVE (NEGATIVE); KETONES,URINE NEGATIVE (NEGATIVE); LEUKOCYTE ESTERASE,URINE SMALL (NEGATIVE); NITRITE,URINE NEGATIVE (NEGATIVE); PROTEIN,URINE NEGATIVE (NEGATIVE); URINE SPECIFIC GRAVITY 1.032
[2018-04-13 17:21] LABS: ALANINE AMINOTRANSFERASE 20 U/L (9-52); ALBUMIN 4.2 g/dL (3.5-5.0); ALKALINE PHOSPHATASE 69 U/L (38-126); ANION GAP 12 (5-19); ASPARTATE AMINO TRANSFERASE 15 U/L (14-36); BILIRUBIN,DIRECT 0.2 mg/dL (0.0-0.4); BILIRUBIN,TOTAL 0.2 mg/dL (0.2-1.3); BLOOD UREA NITROGEN 12 mg/dL (7-20); CALCIUM 9.5 mg/dL (8.4-10.2); CARBON DIOXIDE 26 mmol/L (22-30); CHLORIDE 104 mmol/L (98-107); GLUCOSE 83 mg/dL (75-110); POTASSIUM 3.9 mmol/L (3.6-5.0); SODIUM 141.5 mmol/L (137-145)
--- NOTE | 2018-04-13 17:31 | RADIOLOGY REPORT (SQ) ---
EXAM DESCRIPTION: U/S OB TRANSVAGINAL W/O DOP COMPLETED DATE/TIME: 04/13/2018 5:19 pm REASON FOR STUDY: bleeding, cramping; miscarriage ectopic etc COMPARISON: None. TECHNIQUE: Transvaginal static and realtime grayscale images acquired of the pelvis. Additional kadeem cted spectral and color Doppler images recorded. All images stored on PACs. bHCG: Pending. CLINICAL DATES: Unknown LMP. LIMITATIONS: None. FINDINGS: FETUS: Living intrauterine . ULTRASOUND EGA: 6 week 4 day. ULTRASOUND MARGRET: 12/03/2018. CRL: 0.7 cm. FHR: 117 beats per minute. SUBCHORIONIC BLEED: No. SIZE OF BLEED: Not applicable. UTERUS: No masses. No anomalies. CERVICAL LENGTH: 4.0 cm. Closed. RIGHT ADNEXA: Ovary not identified. No adnexal free fluid. No adnexal masses. LEFT ADNEXA: Ovary not identified. No adnexal free fluid. No adnexal masses. FREE FLUID: None. OTHER: No other significant finding. IMPRESSION: LIVING INTRAUTERINE . EGA 6 WEEK 4 DAY. Trimester of : First - 0 to 13 weeks. TECHNICAL DOCUMENTATION: JOB ID: [id number] [employer]- All Rights Reserved rev-04/04 Reading location - IP/workstation name: [email or web address]
[2018-04-13 18:25] LABS: T.VAGINALIS (WET MOUNT) NO TRICHOMONAS SEEN; WBCS (WET MOUNT) RARE WBCS SEEN; YEAST (WET MOUNT) NO YEAST SEEN
[2018-04-13 19:01] VITALS: BP 129/58
[2018-04-13 19:51] LABS: CHLAM PCR NOT DETECTED (NOT DETECT); GON PCR NOT DETECTED (NOT DETECT)
== END 2018-04-13 19:07 | disposition home or self-care (01) ==
LOC: ER 14:43
DX: O20.0 Threatened abortion (principal); R10.2 Pelvic and perineal pain; O99.331 Smoking (tobacco) complicating pregnancy, first trimester; Z3A.01 Less than 8 weeks gestation of pregnancy
CPT/HCPCS: 99284; 96374; 86900; 86901; 36415; 87210; 86850; 84702; 85025; 80053; 81001; 87491; 87591; 76817; J2790; J3490

== ENCOUNTER 2020-08-09 13:37 | Emergency (ER) | payer MEDICAID ==
[2020-08-09 13:48] VITALS: BP 127/71
== END 2020-08-09 15:39 | disposition left against medical advice (07) ==
LOC: ER 13:37
DX: Z53.21 Procedure and treatment not carried out due to patient leaving prior to being seen by health care provider (principal)

== ENCOUNTER 2020-08-21 20:33 | Emergency (ER) | payer MEDICAID ==
--- NOTE | 2020-08-21 20:42 | ER Document Report ---
ED Medical Screen (RME) - General Chief Complaint: Vaginal Bleeding Stated Complaint: VAGINAL BLEEDING- Time Seen by Provider: 08/21/20 20:39 Primary Care Provider: LUÍS SCHILLING PA-C [Primary Care Provider] - Follow up as needed Mode of Arrival: Ambulatory Information source: Patient Notes: 25-year-old female presented to ED for complaint of vaginal bleeding pelvic cramping. She states she was with twins supposed to be 8 weeks . She states she went to [facility] told she had twins and she was vaginal bleeding and had a subchorionic bleed on baby B. She states she then had a CHILD DEVELOPMENT SPECIALIST follow-up 1 week later they did an ultrasound and stated there was no longer a baby b and baby A's heart was very weak so she was supposed to follow-up again to see what was going on with the other twin. She states she has been bleeding since she first found out she was but today she had a lot of large clots and has had a lot of pelvic cramping. She states she is cramping more even now. She went into the emergency room went straight to the bathroom she had several very large blood clots in the bathroom. We have cleaned her up dressed her put her on with pads and she will be seen another provider. She will get blood urine and ultrasound. We will do the RhoGam because she states she was told that she would need RhoGam. I have greeted and performed a rapid initial assessment of this patient. A comprehensive ED assessment and evaluation of the patient, analysis of test results and completion of medical decision making process will be conducted by an additional ED providers. TRAVEL OUTSIDE OF THE [place] IN LAST 30 DAYS: No - Related Data Allergies/Adverse Reactions: sulfamethoxazole [From Bactrim DS] Allergy (Mild, Verified 04/13/18 14:45) Hives tramadol [Tramadol] Allergy (Mild, Verified 04/13/18 14:45) Hives trimethoprim [From Bactrim DS] Allergy (Mild, Verified 04/13/18 14:45) Hives Past Medical History Neurological Medical History: Reports: Hx Migraine Renal/ Medical History: Denies: Hx Peritoneal Dialysis Skin Medical History: Past Surgical History: Reports: Hx Cardiac Surgery - ASD Repair, Hx Oral Surgery - jaw, Other - ASD repair - Immunizations Immunizations up to date: Yes Hx Diphtheria, Pertussis, Tetanus Vaccination: Yes Doctor's Discharge - Discharge Referrals: LUÍS SCHILLING PA-C [Primary Care Provider] - Follow up as needed
[2020-08-21 21:58] LABS: ABSOLUTE LYMPHOCYTES (AUTO) 2.2 10^3/uL (0.5-4.7); HEMOGLOBIN 12.9 g/dL (12.0-15.5); TOTAL CELLS COUNTED % (AUTO) 100 %
[2020-08-21 22:02] LABS: ABSOLUTE BASOPHILS # (AUTO) 0.1 10^3/uL (0.0-0.2); ABSOLUTE EOSINOPHILS # (AUTO) 0.3 10^3/uL (0.0-0.6); ABSOLUTE MONOCYTES (AUTO) 0.5 10^3/uL (0.1-1.4); ABSOLUTE NEUT (AUTO) 7.6 10^3/uL (1.7-8.2); BASOPHILS % (AUTO) 0.5 % (0-2); EOSINOPHILS % (AUTO) 2.9 % (0-6); HEMATOCRIT 37.2 % (36.0-47.0); LYMPHOCYTES % (AUTO) 20.3 % (13-45); MEAN CORPUSCULAR HEMOGLOBIN 30.2 pg (27.0-33.4); MEAN CORPUSCULAR HGB CONC 34.6 g/dL (32.0-36.0); MEAN CORPUSCULAR VOLUME 87 fl (80-97); MONOCYTES % (AUTO) 4.9 % (3-13); PLATELET COUNT 263 10^3/uL (150-450); RED BLOOD COUNT 4.26 10^6/uL (3.72-5.28); RED CELL DISTRIBUTION WIDTH 13.4 % (11.5-14.0); SEGMENTED NEUTROPHILS % (AUTO) 71.4 % (42-78); WHITE BLOOD COUNT 10.7 10^3/uL (4.0-10.5)
[2020-08-21 22:20] LABS: ALBUMIN 4.4 g/dL (3.5-5.0); ALKALINE PHOSPHATASE 80 U/L (38-126); ANION GAP 10 (5-19); ASPARTATE AMINO TRANSFERASE 17 U/L (14-36); BILIRUBIN,DIRECT 0.3 mg/dL (0.0-0.4); BILIRUBIN,TOTAL 0.5 mg/dL (0.2-1.3); BLOOD UREA NITROGEN 10 mg/dL (7-20); CALCIUM 9.6 mg/dL (8.4-10.2); CARBON DIOXIDE 25 mmol/L (22-30); CHLORIDE 103 mmol/L (98-107); GLUCOSE 104 mg/dL (75-110); POTASSIUM 4.2 mmol/L (3.6-5.0); TOTAL PROTEIN 7.1 g/dL (6.3-8.2)
[2020-08-21 22:35] LABS: APPEARANCE,URINE SLIGHTLY-CLOUDY; BILIRUBIN,URINE NEGATIVE (NEGATIVE); GLUCOSE, URINE NEGATIVE (NEGATIVE); KETONES,URINE NEGATIVE (NEGATIVE); LEUKOCYTE ESTERASE,URINE NEGATIVE (NEGATIVE); NITRITE,URINE NEGATIVE (NEGATIVE); PROTEIN,URINE >=500 mg/dL (NEGATIVE); URINE SPECIFIC GRAVITY 1.017; UROBILINOGEN,URINE NEGATIVE mg/dL (<2.0)
[2020-08-21 22:39] LABS: COLOR,URINE YELLOW
--- NOTE | 2020-08-22 | RADIOLOGY REPORT (SQ) ---
EXAM DESCRIPTION: US TRANSVAGINAL COMPLETED DATE/TME: 08/21/2020 20:42 CLINICAL HISTORY: 25 years, Female, vaginal bleed see hpi COMPARISON: None. TECHNIQUE: Endovaginal images of the pelvis were obtained. Grayscale imaging and Doppler imaging were performed. LIMITATIONS: None. FINDINGS: Gestational sac containing pole and yolk sac is noted, largely localized within the endocervical canal. No cardiac activity is identified. There is a crown-rump length of 4 mm, 6 weeks 1 day estimated age. There is heterogeneous thickening of the endometrium up to 2 cm. No adnexal mass. No free pelvic fluid is seen. IMPRESSION: Failed first trimester . Gestational sac is largely localized within the endocervical canal. Endometrium is heterogeneously thickened up to 2 cm. copyright 2011 [employer]- All Rights Reserved
[2020-08-22] MEDS ORDERED: MISOPROSTOL 0.2 MG TABLET PO ONE (00:37)
--- NOTE | 2020-08-22 00:42 | ER Document Report ---
ED GI/ - General Chief Complaint: Vag Bleeding, +preg <12wks Stated Complaint: VAGINAL BLEEDING- Time Seen by Provider: 08/21/20 20:39 Primary Care Provider: LUÍS SCHILLING PA-C [Primary Care Provider] - Follow up as needed Mode of Arrival: Ambulatory Information source: Patient Notes: 25-year-old patient presented to the emergency department chief complaint of vaginal bleeding in the setting of . Patient reports she is with twins, she states about 2 weeks ago she was told that she lost 1 of the twins. She believes she is about 8 weeks . She states she has been having intermittent bleeding for the last 2 weeks. She is Rh-. She did receive a RhoGam injection 2 weeks ago when her vaginal bleeding for started. She states today her bleeding has increased and she has passing large clots. She denies any dizziness, weakness or episodes of syncope. TRAVEL OUTSIDE OF THE [place] IN LAST 30 DAYS: No - Related Data Allergies/Adverse Reactions: sulfamethoxazole [From Bactrim DS] Allergy (Mild, Verified 04/13/18 14:45) Hives tramadol [Tramadol] Allergy (Mild, Verified 04/13/18 14:45) Hives trimethoprim [From Bactrim DS] Allergy (Mild, Verified 04/13/18 14:45) Hives Home Medications: Past Medical History - General Information source: Patient - Social History Smoking Status: Current Some Day Smoker Family History: None, Reviewed & Not Pertinent Patient has homicidal ideation: No Neurological Medical History: Reports: Hx Migraine Renal/ Medical History: Denies: Hx Peritoneal Dialysis Skin Medical History: Past Surgical History: Reports: Hx Cardiac Surgery - ASD Repair, Hx Oral Surgery - jaw, Other - ASD repair - Immunizations Immunizations up to date: Yes Hx Diphtheria, Pertussis, Tetanus Vaccination: Yes Review of Systems - Review of Systems Gastrointestinal: Abdominal pain Female Genitourinary: Vaginal bleeding -: Yes All other systems reviewed and negative Physical Exam - Vital signs Vitals: Temp Pulse Resp BP Pulse Ox 98.5 F 84 18 133/75 H 100 08/21/20 20:43 08/21/20 20:43 08/21/20 20:43 08/21/20 20:43 08/21/20 20:43 - Notes Notes: PHYSICAL EXAMINATION: GENERAL: Well-appearing, well-nourished and in no acute distress. HEAD: Atraumatic, normocephalic. EYES: Pupils equal round and reactive to light, extraocular movements intact, conjunctiva are normal. ENT: Nares patent, oropharynx clear without exudates. Moist mucous membranes. NECK: Normal range of motion, supple without lymphadenopathy LUNGS: Breath sounds clear to auscultation bilaterally and equal. No wheezes rales or rhonchi. HEART: Regular rate and rhythm without murmurs ABDOMEN: Soft, nontender, nondistended abdomen. No guarding, no rebound. No masses appreciated. Female : small amount of vaginal bleeding noted, no other abnormality on vaginal exam Musculoskeletal: Normal range of motion, no pitting or edema. No cyanosis. NEUROLOGICAL: Cranial nerves grossly intact. Normal speech, normal gait. Normal sensory, motor exams PSYCH: Normal mood, normal affect. SKIN: Warm, Dry, normal turgor, no rashes or lesions noted. Course - Re-evaluation Re-evalutation: Microbiology 08/21/20 21:37 Urine Culture - Preliminary Clean Catch Midstream Laboratory 08/21/20 08/21/20 08/21/20 21:37 21:45 21:45 WBC 10.7 H RBC 4.26 Hgb 12.9 Hct 37.2 MCV 87 MCH 30.2 MCHC 34.6 RDW 13.4 Plt Count 263 Lymph % (Auto) 20.3 [place] % (Auto) 4.9 Eos % (Auto) 2.9 Baso % (Auto) 0.5 Absolute Neuts (auto) 7.6 Absolute Lymphs (auto) 2.2 Absolute Monos (auto) 0.5 Absolute Eos (auto) 0.3 Absolute Basos (auto) 0.1 Seg Neutrophils % 71.4 Sodium 138.0 Potassium 4.2 Chloride 103 Carbon Dioxide 25 Anion Gap 10 BUN 10 Creatinine 0.61 Est GFR ( Amer) > 60 Est GFR (MDRD) Non-Af > 60 Glucose 104 Calcium 9.6 Total Bilirubin 0.5 Direct Bilirubin 0.3 Neonat Total Bilirubin Not Reportable Neonat Direct Bilirubin Not Reportable Neonat Indirect Bili Not Reportable AST 17 ALT 14 Alkaline Phosphatase 80 Total Protein 7.1 Albumin 4.4 Beta HCG, Quant 5358.00 H Total Beta HCG POSITIVE Urine Color YELLOW Urine Appearance SLIGHTLY-CLOUDY Urine pH 6.0 Ur Specific [place] 1.017 Urine Protein >=500 H Urine Glucose (UA) NEGATIVE Urine Ketones NEGATIVE Urine Blood SMALL H Urine Nitrite NEGATIVE Urine Bilirubin NEGATIVE Urine Urobilinogen NEGATIVE Ur Leukocyte Esterase NEGATIVE Urine WBC (Auto) 18 Urine RBC (Auto) >182 Urine Mucus (Auto) FEW Urine Ascorbic Acid NEGATIVE Blood Type Antibody Screen Antibody Identification Rhogam Indicated 08/21/20 21:45 WBC RBC Hgb Hct MCV MCH MCHC RDW Plt Count Lymph % (Auto) [place] % (Auto) Eos % (Auto) Baso % (Auto) Absolute Neuts (auto) Absolute Lymphs (auto) Absolute Monos (auto) Absolute Eos (auto) Absolute Basos (auto) Seg Neutrophils % Sodium Potassium Chloride Carbon Dioxide Anion Gap BUN Creatinine Est GFR ( Amer) Est GFR (MDRD) Non-Af Glucose Calcium Total Bilirubin Direct Bilirubin Neonat Total Bilirubin Neonat Direct Bilirubin Neonat Indirect Bili AST ALT Alkaline Phosphatase Total Protein Albumin Beta HCG, Quant Total Beta HCG Urine Color Urine Appearance Urine pH Ur Specific [place] Urine Protein Urine Glucose (UA) Urine Ketones Urine Blood Urine Nitrite Urine Bilirubin Urine Urobilinogen Ur Leukocyte Esterase Urine WBC (Auto) Urine RBC (Auto) Urine Mucus (Auto) Urine Ascorbic Acid Blood Type O NEGATIVE Antibody Screen POSITIVE Antibody Identification RHOGAM INDUCED ANTI-D Rhogam Indicated RHOGAM NOT REQUESTED Transvaginal US 08/21/20 20:42 IMPRESSION: Failed first trimester . Gestational sac is largely localized within the endocervical canal. Endometrium is heterogeneously thickened up to 2 cm. copyright 2010 [employer]- All Rights Reserved - Vital Signs Vital signs: Temp Pulse Resp BP Pulse Ox 98.6 F 55 L 14 116/65 99 08/22/20 00:59 08/22/20 00:59 08/22/20 00:59 08/22/20 00:59 08/22/20 00:59 - Laboratory Result Diagrams: 08/21/20 21:45 08/21/20 21:45 Laboratory results interpreted by me: 08/21/20 08/21/20 08/21/20 21:37 21:45 21:45 WBC 10.7 H Beta HCG, Quant 5358.00 H Urine Protein >=500 H Urine Blood SMALL H Discharge - Discharge Clinical Impression: Incomplete miscarriage Condition: Stable Disposition: HOME, SELF-CARE Additional Instructions: Miscarriage Impending You have been evaluated for a possible miscarriage. At this time, it appears that the fetus has stopped growing. A miscarriage occurs when the fetus is abnormal. There is no medicine or treatment to prevent it. If bleeding is not severe, and if your pain can be controlled with medicine, you could complete the miscarriage at home. If that's not practical, or if the miscarriage doesn't progress spontaneously, we will arrange for a D&C procedure. You should rest in bed. Do not douche or have sex for at least a week, or until OK'd by the doctor. If you believe you've passed the fetus, collect it in a zip-lock plastic bag. Be sure to follow up with your doctor. Call the doctor or return for re- examination if there is an increase in bleeding or cramping, extreme weakness, fainting, fever, or passage of tissue. You were given 600mcg of cytotec in the emergency department [address]. Pl ease keep the appointment you have with your CENTER MA[facility]ER HAND on Saturday. Please return to the emergency department if you develop significant vaginal bleeding, that is passing through more than 2 pads per hour for 4 hours consecutively. Please also return to the emergency department if you pass out, feel like you are going to pass out or feel weak or dizzy. The medication we gave you would likely cause you to have increased cramping and will help pass the rest of the tissue. Once that occurs the bleeding should start to subside. It is possible that you will need to have a D&C performed. Forms: Return to Work Referrals: LUÍS SCHILLING PA-C [Primary Care Provider] - Follow up as needed
[2020-08-22] MEDS ORDERED: HYDROCODONE/ACETAMINOPHEN 5-325 MG (6 TAB/ER DISP) PO PRN (00:45)
[2020-08-22 01:01] VITALS: BP 116/65
== END 2020-08-22 01:02 | disposition home or self-care (01) ==
LOC: ER 20:33
DX: O03.4 Incomplete spontaneous abortion without complication (principal); R10.9 Unspecified abdominal pain; O99.331 Smoking (tobacco) complicating pregnancy, first trimester; Z3A.08 8 weeks gestation of pregnancy
CPT/HCPCS: 36415; 76817; 80053; 81001; 84702; 85025; 86850; 86870; 86900; 86901; 87086; 93976; 99284